=== PATIENT | male | born 1970 | race African-American/Black ===

== ENCOUNTER 2019-03-16 23:37 | Emergency (ER) | payer OTHER ==
[~2019-03-16] VITALS: Ht 172.7 cm; Wt 68.0 kg
[2019-03-16 23:39] VITALS: BP 132/68
--- NOTE | 2019-03-16 23:39 | NUR ---
ED Nurse Note: Patient presents with complaints of ETOH and confusion. Patient has history of TBI and recurrent memory lapses with ETOH ingestion.
[2019-03-17 00:04] LABS: HEMATOCRIT 34.9 % (42.0-52.0); HEMOGLOBIN 12.2 G/DL (14.2-18.0); MEAN CORPUSCULAR VOLUME 89 FL (80-99); PLATELET COUNT 262 K/UL (150-450); RED BLOOD COUNT 3.93 M/UL (4.70-6.10); RED CELL DISTRIBUTION WIDTH 12.2 % (11.6-14.8); WHITE BLOOD COUNT 6.2 K/UL (4.8-10.8)
--- NOTE | 2019-03-17 00:06 | NUR ---
ED Nurse Note: Patient currently relaxing with no s/s of acute distress.
[2019-03-17 00:17] LABS: ANION GAP 11 mmol/L (5-15); BLOOD UREA NITROGEN 13 mg/dL (7-18); CALCIUM 8.5 MG/DL (8.5-10.1); CARBON DIOXIDE 26 MMOL/L (21-32); CHLORIDE 107 MMOL/L (98-107); POTASSIUM 3.4 MMOL/L (3.5-5.1); SODIUM 144 MMOL/L (136-145)
[2019-03-17 00:21] LABS: ALANINE AMINOTRANSFERASE 17 U/L (12-78); ALBUMIN 3.4 G/DL (3.4-5.0); ALBUMIN/GLOBULIN RATIO 0.9 (1.0-2.7); ALKALINE PHOSPHATASE 102 U/L (46-116); ASPARTATE AMINO TRANSFERASE 25 U/L (15-37); BILIRUBIN,TOTAL 0.8 MG/DL (0.2-1.0)
--- NOTE | 2019-03-17 01:09 | NUR ---
ED Nurse Note: Patient sleeping soundly with no s/s of acute distress, vital signs stable and documented.
[2019-03-17 01:10] VITALS: BP 132/91
--- NOTE | 2019-03-17 02:10 | NUR ---
ED Nurse Note: Patient resting confortably. Will continue to monitor.
[2019-03-17] MEDS ORDERED: Tylenol #3 tab (300mg/30mg) ORAL ONE (03:15)
--- NOTE | 2019-03-17 03:15 | NUR ---
ED Nurse Note: Patient expressed intent to leave. Patient unwilling to listen to reason. Upon attempted departure patient realized that it was far too early and dark to attempt to leave. Will continue to monitor.
--- NOTE | 2019-03-17 04:15 | NUR ---
ED Nurse Note: Patient tolerated pain medication well. Patient currently sleeping soundly, vital signs stable.
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
--- NOTE | 2019-03-17 05:15 | NUR ---
ED Nurse Note: Patient awake and alert, oriented x4. Patient able to ambulate to restroom to void.
--- NOTE | 2019-03-17 07:17 | NUR ---
HAND-OFF: Report given to Prema DAY.
--- NOTE | 2019-03-17 08:22 | NUR ---
ED Nurse Note: Patient is being discharged from medical care. Patient awake, alert, oriented x 4. Regular, unlabored breathing noted. Patient ambulating with steady gait using crutches. D/C instruction given and patient verbalized understanding of it. Patient requesting taxi voucher to his sister house to spanish moss picker his car. He states he has no cellphone with him and unable to get any family or friends contact info. Nursing supervisor mirror fabrication contacted. Asked patient to wait for taxi voucher in waiting room and patient agreed to do it. Patient left ER with all his belongings.
--- NOTE | 2019-03-17 08:39 | NUR ---
ED Nurse Note: Patient ambulating in hallway, drinking water without problem.
--- NOTE | 2019-03-17 08:40 | NUR ---
ED Nurse Note: Nursing lloydior informed this RN that she cannot provide taxi voucher as the distance is over 10 miles. RN provided updated information and asked patient to provide his home address. Patient given his home address and updated facesheet. Nursing lloydior in meeting and RN informed patient to wait in waiting room.
--- NOTE | 2019-03-17 09:15 | NUR ---
ED Nurse Note: Patient not found in waiting room. Prema security officer informed this RN that patient left.
== END 2019-03-17 08:22 | disposition home or self-care (01) ==
LOC: EDBD 23:37 → EMR 23:50
DX: F10.929 Alcohol use, unspecified with intoxication, unspecified (principal); I10 Essential (primary) hypertension
CPT/HCPCS: 36415; 80053; 80307; 80329; 85025; 96360; 99284

== ENCOUNTER 2019-11-09 18:42 | Emergency (ER) | payer OTHER ==
[~2019-11-09] VITALS: Ht 172.7 cm; Wt 63.5 kg
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
--- NOTE | 2019-11-09 18:55 | NUR ---
ED Nurse Note: per SINAN, pt lives in retirement house
--- NOTE | 2019-11-09 19:00 | NUR ---
ED Nurse Note: Pt in CT
[2019-11-09 19:03] LABS: BASOPHILS % (AUTO) 1.8 % (0.0-2.0); EOSINOPHILS % (AUTO) 2.3 % (0.0-3.0); HEMATOCRIT 38.4 % (42.0-52.0); HEMOGLOBIN 12.5 G/DL (14.2-18.0); LYMPHOCYTES % (AUTO) 28.6 % (20.0-45.0); MEAN CORPUSCULAR VOLUME 91 FL (80-99); MONOCYTES % (AUTO) 3.5 % (1.0-10.0); NEUTROPHILS % (AUTO) 63.9 % (45.0-75.0); PLATELET COUNT 331 K/UL (150-450); RED BLOOD COUNT 4.23 M/UL (4.70-6.10); RED CELL DISTRIBUTION WIDTH 12.8 % (11.6-14.8); WHITE BLOOD COUNT 7.5 K/UL (4.8-10.8)
[2019-11-09 19:05] VITALS: BP 141/75
[2019-11-09 19:12] LABS: ANION GAP 11 mmol/L (5-15); BLOOD UREA NITROGEN 12 mg/dL (7-18); CALCIUM 8.8 MG/DL (8.5-10.1); CARBON DIOXIDE 25 MMOL/L (21-32); CHLORIDE 106 MMOL/L (98-107); CREATININE 0.9 MG/DL (0.55-1.30); POTASSIUM 3.6 MMOL/L (3.5-5.1); SODIUM 142 MMOL/L (136-145)
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
[2019-11-09 19:16] LABS: ALANINE AMINOTRANSFERASE 20 U/L (12-78); ALBUMIN 3.9 G/DL (3.4-5.0); ALKALINE PHOSPHATASE 74 U/L (46-116); ASPARTATE AMINO TRANSFERASE 30 U/L (15-37); BILIRUBIN,TOTAL 0.5 MG/DL (0.2-1.0)
--- NOTE | 2019-11-09 19:16 | NUR ---
ED Nurse Note: Report given to BARB Murray. Pt in stable condition; plan of care endorsed.
--- NOTE | 2019-11-09 19:20 | NUR ---
ED Nurse Note: Report received from BARB Lee. Pt is awake and alert, appears intoxicated and has a flight of ideas. Pt is otherwise in no acute distress and vital signs are stable. Will continue to monitor. IV fluids infusing.
--- NOTE | 2019-11-09 19:35 | NUR ---
ED Nurse Note: Spoke with pt daughter, Jahaira. Phone number is [phone].
[2019-11-09 21:00] VITALS: BP 128/82
--- NOTE | 2019-11-09 21:00 | NUR ---
ED Nurse Note: Pt is awake and alert, able to use urinal with assist. No acute distress noted. VSS. Pt still appears intoxicated. Will continue to monitor pt.
[2019-11-09 23:00] VITALS: BP 129/75
--- NOTE | 2019-11-09 23:00 | NUR ---
ED Nurse Note: Pt is sleeping at this time, no acute distress. Will continue to monitor and assess pt readiness for DC.
[2019-11-10 01:00] VITALS: BP 133/69
--- NOTE | 2019-11-10 01:00 | NUR ---
ED Nurse Note: Pt is sleeping at this time. No acute distress noted. Will continue to monitor.
--- NOTE | 2019-11-10 04:40 | NUR ---
ED Nurse Note: Pt is awake, aaox4 and able to walk with steady gait normal for pt. Pt is requesting to go home at this time.
[2019-11-10 05:12] VITALS: BP 125/82
--- NOTE | 2019-11-10 05:12 | NUR ---
ER DISCHARGE NOTE: Patient is cleared to be discharged per ERMD, pt is aox4, on room air, with stable vital signs. pt was given dc instructions, pt was able to verbalize understanding, pt id band and iv site removed without complications. pt is able to ambulate with steady gait. pt took all belongings.
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
== END 2019-11-10 05:12 | disposition home or self-care (01) ==
LOC: EDBD 18:42 → EMR 19:17
DX: F10.129 Alcohol abuse with intoxication, unspecified (principal); Y90.8 Blood alcohol level of 240 mg/100 ml or more; I10 Essential (primary) hypertension; M47.812 Spondylosis without myelopathy or radiculopathy, cervical region; Z86.73 Personal history of transient ischemic attack (TIA), and cerebral infarction without residual deficits; V47.5XXA Car driver injured in collision with fixed or stationary object in traffic accident, initial encounter; Y92.410 Unspecified street and highway as the place of occurrence of the external cause
CPT/HCPCS: 36415; 70450; 72125; 80053; 80307; 85025; 96361; 96374; 96375; G0480; J2405; J7030; S0028; Z7502; 99284